=== PATIENT | female | born 1950 | race Caucasian/White ===

== ENCOUNTER 2017-01-14 22:14 | Inpatient (IN) | payer MEDICARE ==
--- NOTE | ~2017-01-14 | OP ---
Record Of Operation [facility] [address] [place]. [address] NAME: HERMES GARCIA : 52 STATUS : ADM IN [facility]#: [id number] AGE: 66 ADM/REG DATE : 01/15/17 MR#: [id number] REPORT SERV DATE: 01/16/17 DICTATED BY: ROSALIO REDD DATE: 01/15/17 REPORT STATUS : Draft TRANSCRIBED BY: MODL DATE: 01/15/17 DATE OF PROCEDURE: 01/15/2017 PREOPERATIVE DIAGNOSIS: Pathologic left proximal 1/3rd diaphyseal femur fracture, secondary to osteoporosis. POSTOPERATIVE DIAGNOSIS: Pathologic left proximal 1/3rd diaphyseal femur fracture, secondary to osteoporosis. PROCEDURE: Intramedullary nailing, left femur fracture. INTERMODAL CUSTOMER SERVICE: Manolo Milligan. ANESTHESIA: General endotracheal. ESTIMATED BLOOD LOSS: 150 mL. COMPLICATIONS: None. DRAINS: None. IMPLANTS: Carmen Gamma3 nail. INDICATIONS FOR SURGERY: Ms. Garcia is a 66-year-old female, who sustained the above- mentioned fracture in a fall. She had a known impending pathologic femur fracture, secondary to osteoporosis. It was recommended that she undergo the above-mentioned procedure. Risks of the procedure including infection, neurovascular damage, DVT, PE, blood loss, nonunion, malunion, loss of fixation, possible future need for removal of hardware, anesthetic complications and others were discussed prior to proceeding. She fully understood and has requested to proceed. DESCRIPTION OF PROCEDURE: The patient was brought to the operating room and after adequate induction of anesthesia was positioned on the [place] fracture table in the supine position. The nonoperative hip was placed in flexion and abduction to facilitate radiography. The operative leg was placed in gentle skin traction. The fracture was then reduced to a position of anatomic reduction. Appropriate reduction was confirmed using biplanar fluoroscopic guidance. The hip was then prepped and draped in the usual sterile fashion. A 3-4cm incision was made proximal to the tip of the greater trochanter using a #10 blade. The subcutaneous tissues were dissected sharply, electrocautery was used as needed to maintain hemostasis. The fascia buddy was divided in line with the incision. The guidewire for the Gamma III nail system was then placed in the tip of the greater trochanter, in line with the intramedullary canal of the femur. The appropriate guidewire placement was confirmed using biplanar fluoroscopy. The guidewire was then over reamed with a 15.5 mm starting reamer. The 15.5 mm starting reamer was used to create a starting hole for the nail. After creating the starting hole, a ball-tipped guidewire was placed to the level of the fracture, a femoral driving guide and manual force was used to provisionally reduce the Record Of Operation [id number] [place]. [address] NAME: HERMES GARCIA : 52 STATUS : ADM IN PAT#: [id number] AGE: 66 ADM/REG DATE : 01/15/17 MR#: [id number] REPORT SERV DATE: 01/16/17 DICTATED BY: ROSALIO REDD DATE: 01/15/17 REPORT STATUS : Draft TRANSCRIBED BY: PIRNCESS DATE: 01/15/17 fracture and passed the guidewire across the fracture site. The guidewire was placed to the level of the distal metaphysis of the femur, it was measured to be 38 cm in length, with 36 cm clarice was chosen. The femur was then sequentially reamed from 9 mm to 11.5 mm, 0.5 mm increments. A 36 cm x 10 mm Gamma nail was then impacted across the fracture site over the guidewire. The guidewire was removed. Once, the nail was impacted to the appropriate depth, the compression screw guides were placed through separate incision. The guidewire was placed in a near center-center position for the compression screw. It was then drilled, then a 75 mm compression screw was placed, then a proximal set screw was placed in a static fashion. A perfect kotzebue technique was then used to place the distal locking screw for rotational control in a dynamic fashion using a perfect kotzebue technique. Once this had been completed, final fluoroscopic images were obtained and saved in both planes. The wound was copiously irrigated with normal saline. The fascia was closed with interrupted #1 Vicryl suture in [id number] fashion. The subcutaneous tissues were approximated with interrupted 2-0 Vicryl suture, and the skin stapled. A sterile dressing was applied and the patient awakened and taken to the recovery room in stable condition. POSTOPERATIVE PLAN: She is to be mobilized weightbearing as tolerated. She will have Physical Therapy for assistance with ambulation and will be on Coumadin and mechanical DVT prophylaxis. FRANCINE/MODL Rosalio Redd M.D. / [id number] CC: Maria Guadalupe Hernandez M.D.
--- NOTE | ~2017-01-14 | HP ---
History And Physical [address] [place]. [address] NAME: HERMES GARCIA : 52 STATUS : ADM IN [facility]#: [id number] AGE: 66 ADM/REG DATE : 01/15/17 MR#: [id number] REPORT SERV DATE: 01/15/17 DICTATED BY: RAQUEL BERNSTEIN DATE: 01/15/17 REPORT STATUS : Draft TRANSCRIBED BY: MODJude DATE: 01/15/17 DATE OF ADMISSION: 01/15/2017 POINT OF ENTRY: [facility] Emergency Department. PRIMARY CARE PHYSICIAN: None at this time. PRIMARY ORTHOPEDIC SURGEON: Rosalio Redd M.D. CHIEF COMPLAINT: Left leg pain. HISTORY OF PRESENT ILLNESS: Ms. Garcia is a 66-year-old female with a history of osteoarthritis, fibromyalgia, as well as "metabolic bone disease" who presents to the emergency department today with acute onset of left leg pain. The patient states she was recently diagnosed with a presumed occult fracture of the left femur with plans for surgical correction tomorrow by Dr. Redd. Today, while placing weight on the left leg while stepping out of a bathtub she felt a pop and sudden sensation of pain in that left leg. She denies any recent trauma to the leg. Denies any falls. The patient states she has a history of metabolic bone disease. She states that she was recently diagnosed with this occult fracture in her left femur by Dr. Redd when she started to complain of discomfort and pain in that leg. X-rays reportedly negative, but it was detected by a bone scan. Initial evaluation in the emergency department notable for multiple films of the pelvis and left leg that shows a displaced fracture of the proximal segment of the femoral shaft. Labs and chest x-ray otherwise unremarkable. She was subsequently admitted to the Hospitalist Service for further evaluation and management. REVIEW OF SYSTEMS: Comprehensive review of systems otherwise negative unless listed in history of present illness. PREVIOUS MEDICAL HISTORY: 1. "Metabolic bone disease. 2. Osteoarthritis. 3. Fibromyalgia. 4. Reflex sympathetic dystrophy. SURGICAL HISTORY: 1. Bilateral total knee. 2. Cholecystectomy. 3. Cervical spine surgery. 4. ORIF of right femur. History And Physical [address] [place]. [address] NAME: HERMES GARCIA : 52 STATUS : ADM IN PAT#: [id number] AGE: 66 ADM/REG DATE : 01/15/17 MR#: [id number] REPORT SERV DATE: 01/15/17 DICTATED BY: RAQUEL BERNSTEIN DATE: 01/15/17 REPORT STATUS : Draft TRANSCRIBED BY: PRINCESS DATE: 01/15/17 ALLERGIES: NO KNOWN DRUG ALLERGIES. HOME MEDICATIONS: 1. Calcium with vitamin D 600 mg daily. 2. Cholecalciferol 10,000 units daily. 3. Melatonin 10 mg at bedtime. 4. Multivitamin one tab daily. 5. Tramadol 50 mg q.4 hours p.r.n. 6. Flexeril 1 tab q.4 hours p.r.n. 7. Celebrex 1 tab t.i.d. 8. Tjgs-icj-cjhahdm pain medication. SOCIAL HISTORY: Denies any tobacco, alcohol, or illicits. FAMILY MEDICAL HISTORY: Mother with coronary artery disease. Father with prostate cancer. Siblings with history of prostate cancer. LABS AND IMAGIN. White count is 12.2, hemoglobin 13.5, hematocrit 37.7, and platelet count is 231. INR 1.1. 2. Sodium is 142, potassium 3.5, chloride 105, carbon dioxide 29, BUN 14, creatinine 0.80, glucose is 154, calcium is 8.7, protein is 7.5, albumin is 3.9, bilirubin is 0.3, ALT is 23, AST 20, and alkaline phosphatase is 89. 3. Chest x-ray per my review shows no acute cardiopulmonary abnormality. 4. Plain films of the left hip and pelvis show a displaced fracture in the proximal segment of the left femoral shaft. PHYSICAL EXAMINATION: VITAL SIGNS: Temperature is afebrile, pulse initially is 113, and blood pressure 160/94. GENERAL: The patient is awake, alert, in no acute distress. Resting comfortably in bed. She is a well-developed, well-nourished, female. HEENT: Atraumatic and normocephalic. Moist mucous membranes. Pupils equal, round, and reactive to light and accommodation. Extraocular eye movements intact. No scleral icterus. NECK: No jugular venous distention. No carotid bruits. CARDIAC: Regular rate and rhythm. No murmurs or gallops. Normal S1, S2. LUNGS: Clear to auscultation bilaterally. No wheezes, rhonchi, or rales. ABDOMEN: Soft, nontender, nondistended. Good bowel sounds. No rebound, guarding, or rigidity. EXTREMITIES: Warm and perfused. The left lower extremity is foreshortened but is neurovascularly intact distally. SKIN: Warm and dry. PSYCH: Affect appropriate. NEURO: Alert and oriented x3. Cranial nerves 2 through 12 are grossly intact. Speech is normal. Gait not assessed. ASSESSMENT: Ms. Garcia is a 66-year-old female who presents with acute onset of left leg pain and found to have displaced fracture of the left femur. History And Physical [address] [address] NAME: HERMES GARCIA : 52 STATUS : ADM IN [facility]#: [id number] AGE: 66 ADM/REG DATE : 01/15/17 MR#: [id number] REPORT SERV DATE: 01/15/17 DICTATED BY: RAQUEL BERNSTEIN DATE: 01/15/17 REPORT STATUS : Draft TRANSCRIBED BY: PRINCESS DATE: 01/15/17 PROBLEM LIST: 1. Displaced fracture, left femur. 2. Metabolic bone disease. PLAN: 1. Displaced left femur fracture. We will admit patient to Hospitalist Service. We will consult Orthopedic Surgery, Dr. Redd, who had plans for surgery anyways tomorrow on this very same leg. Preoperative labs and chest x-ray have been done. We will check a urinalysis as well as an EKG. I will provide supportive care with antiemetics, pain control, as well as p.r.n. Valium or Flexeril for muscle spasms. Per discussion with Dr. Bullard, we will also place the patient in Adams's traction given displaced fracture. 2. Metabolic bone disease per Dr. Redd. 3. DVT prophylaxis. BERNA's and SCD's. CODE STATUS: The patient wished to be full code. MARTI/PRINCESS Raquel Bernstein MD / [id number] CC: Selvin Morfin [place], M.D.
--- NOTE | ~2017-01-14 | DS ---
Discharge Summary [facility] [address] [place]. [address] NAME: HERMES GARCIA : 52 STATUS : DIS IN PAT#: [id number] AGE: 66 ADM/REG DATE : 01/15/17 MR#: [id number] REPORT SERV DATE: 01/18/17 DICTATED BY: Kateryna TY DATE: 01/17/17 REPORT STATUS : Draft TRANSCRIBED BY: MODL DATE: 01/17/17 ADMISSION DATE: 01/15/2017 DISCHARGE DATE: 01/17/2017 The patient was admitted to the Hospitalist Service. PRISM INSPECTOR: Rosalio Redd M.D. DISCHARGE DIAGNOSES: 1. Left pathologic femur fracture secondary to osteoporosis status post left intramedullary nailing. 2. History of metabolic bone disease. 3. Fibromyalgia. 4. History of arthritis. PROCEDURES: On 01/15/2017, the patient underwent intramedullary nailing of left femur fracture. IMAGING AND DIAGNOSTICS: 1. On 01/14/2017, portable chest x-ray revealed stable mild cardiomegaly with mild pulmonary venous congestion. 2. On 01/14/2017, hip and pelvis x-ray showed a transverse fracture proximal left femur. LABORATORY STUDIES: 1. Discharge labs on 01/17/2017; basic metabolic panel revealed a sodium of 138, potassium 3.9, chloride 102, CO2 of 32, BUN 20, creatinine 0.82, GFR 75, glucose 119, calcium 8.7, and magnesium 2.4. 2. CBC on 01/17/2017 revealed a white count of 13.5, hemoglobin 11, hematocrit 31.7, platelets 219,000. 3. Pro time 19.3, INR 1.6. HISTORY OF PRESENT ILLNESS: For complete history, please refer to admission H and P by Dr. Ish Reyes. Briefly, Ms. Garcia is a very pleasant, 66-year-old female who presented to the emergency room with complaints of left leg pain. She states that she was scheduled to have surgery for an occult fracture of the left femur by Dr. Redd. However, when she stepped out of the bath tub earlier in the day prior to her admission, she felt a pop and sudden sensation of left leg pain. Therefore, she presented to the emergency room for evaluation. Hospitalist Service was asked to admit her. HOSPITAL COURSE: Ms. Garcia was admitted to the orthopedic unit. A consultation was placed to Dr. Rosalio Redd. She was kept n.p.o. and provided with IV fluids, p.r.n. antiemetics, and p.r.n. IV pain control. She was also placed in Adams's traction. She was seen later that day by Dr. Rosalio Redd who planned on taking the patient to the OR and proceed with the previously scheduled surgery. I initially saw Ms. Garcia post surgery. She was in no acute distress, sitting up in bed with a cervical soft collar intact stating that she had a history of a broken neck, and she used a soft collar for support. Her blood Discharge Summary [facility] [id number] [facility] [place]. [address] NAME: HERMES GARCIA : 52 STATUS : DIS IN [facility]#: [id number] AGE: 66 ADM/REG DATE : 01/15/17 MR#: [id number] REPORT SERV DATE: 01/18/17 DICTATED BY: Kateryna TY DATE: 01/17/17 REPORT STATUS : Draft TRANSCRIBED BY: PRINCESS DATE: 01/17/17 pressure was elevated at 147/80 and 172/87. Chest x-ray done in the emergency room was read as some mild venous congestion compared to the preop chest x-ray that she had done the week prior. She did have no symptoms of shortness of breath or chest pain. She did have a few fine bibasilar crackles posteriorly. I did give her one dose of IV Lasix and discontinued her IV fluids. She did have a Wilson catheter on this date. On 01/16/2017, she was sitting up in a chair. Upon my assessment, she had no complaints. She denied any chest pain, shortness of breath, or dysuria. She did dislike the hospital food served and was eating a subway sandwich without any symptoms. Her Wilson catheter was discontinued earlier that morning, and she had not voided yet. Her labs were stable, and her vital signs were stable. Blood pressure 95/57, heart rate in the low 90s, and her O2 saturation was 97% on room air, and she was afebrile. On the morning of 01/17/2017, I saw Ms. Garcia ambulating in the rodriguez using a rolling walker. She was in no distress whatsoever, doing well overall. Vital signs stable. She stated that she had some mild left-sided thigh discomfort, otherwise no new complaints. Her vital signs this morning, blood pressure 136/74, pulse 64, respirations 16 and unlabored, temp 97.5, and O2 saturation 94% on room air. Her lungs were clear to auscultation bilaterally. Normal respiratory effort. Heart sounds were normal without murmurs, rubs, or gallops. Regular rate and rhythm. Abdomen was soft, nontender. Active bowel sounds. Eating and drinking without difficulty. She denied any urinary symptoms whatsoever, was voiding without difficulty. She did have a mild leukocytosis this morning, however, this is likely secondary to the IV steroids that she received last dose yesterday. Therefore, it was felt that Ms. Garcia was stable to be discharged home after passing Physical Therapy. She and her were in agreement with this plan of care. Per Ortho, she was able to discharge home today. DISCHARGE INSTRUCTIONS: Include: 1. Diet as tolerated. 2. Activity as tolerated with outpatient physical therapy. DISCHARGE MEDICATIONS: Are as follows: 1. Caltrate 600 plus D one p.o. daily. 2. Vitamin D 68780 units p.o. daily. 3. Colace 100 mg p.o. b.i.d. 4. Melatonin 10 mg p.o. at bedtime. 5. Multivitamin p.o. daily. 6. Coumadin 4 mg p.o. daily. 7. Flexeril 10 mg p.o. four times a day p.r.n. 8. Tramadol 50 mg p.o. q.4 hours p.r.n. 9. Legatrin PM over the counter, one at bedtime p.r.n. 10.Oxycodone 5 mg 1-2 tabs q.4-6 hours p.r.n. pain prescription on chart. OTHER DISCHARGE INSTRUCTIONS: Include the patient will follow up with her primary care provider in 7-10 days. She will also follow up with Dr. Redd as previously scheduled. DICTATED BY: Nova Roman, [facility]- Discharge Summary [address] [address] NAME: HERMES GARCIA : 52 STATUS : DIS IN [facility]#: [id number] AGE: 66 ADM/REG DATE : 01/15/17 MR#: [id number] REPORT SERV DATE: 01/18/17 DICTATED BY: Kateryna TY DATE: 01/17/17 REPORT STATUS : Draft TRANSCRIBED BY: PRINCESS DATE: 01/17/17 DICTATED FOR: Selvin Galindo/PRINCESS RONA Marquez Kateryna Ty M.D. / [id number] CC: Selvin Morfin M.D.
--- NOTE | ~2017-01-14 | CN ---
Consultation Report [facility] [address] [place]. [address] NAME: HERMES GARCIA : 52 STATUS : ADM IN PAT#: [id number] AGE: 66 ADM/REG DATE : 01/15/17 MR#: [id number] REPORT SERV DATE: 01/16/17 DICTATED BY: ROSALIO REDD DATE: 01/15/17 REPORT STATUS : Draft TRANSCRIBED BY: MODL DATE: 01/15/17 DATE OF CONSULTATION: 01/15/2017 CHIEF COMPLAINT: Left thigh pain. HISTORY OF PRESENT ILLNESS: Ms Garcia is a 66-year-old female, who is noted to have impending pathologic left femur fracture. She had been at home protected weightbearing. She stood on her left leg and twisted resulting in a fall. She was unable to ambulate after the fall. She presented to [facility] Emergency Room, where x-rays showed a proximal 1/3 left diaphyseal femur fracture. I have now been asked to see her for evaluation and treatment. On questioning, she complains of only thigh and hip pain. She denies any mental status changes or loss of consciousness at the time of the fall. PHYSICAL EXAMINATION: GENERAL: She is awake, alert and oriented. NECK: Nontender. EXTREMITIES: She has no evidence of bony injury to either upper extremity or right lower extremity with regard to her left lower extremity. She has a slight angular deformity of her proximal femur. She is non-tolerant to any attempted passive or active hip or knee range of motion. There is no significant trochanteric tenderness. She is exquisitely tender at the level of the fracture as would be expected. She has normal sciatic nerve function and palpable pedal pulses. DIAGNOSTIC STUDIES: X-rays of her left femur show a proximal 1/3 diaphyseal left femur fracture. IMPRESSION: Pathologic left femur fracture secondary to osteoporosis. I have recommended Ms Garcia to undergo intramedullary nailing as was previously scheduled. I have reviewed the risks, benefits, and expected outcome of the surgery as was previously discussed. She has a good understanding and has requested to proceed with surgical scheduling. FRANCINE/PRINCESS Rosalio Redd M.D. / [id number] CC: Consultation Report [address] [place]. [address] NAME: HERMES GARCIA : 52 STATUS : ADM IN PAT#: [id number] AGE: 66 ADM/REG DATE : 01/15/17 MR#: [id number] REPORT SERV DATE: 01/16/17 DICTATED BY: ROSALIO REDD DATE: 01/15/17 REPORT STATUS : Draft TRANSCRIBED BY: MODL DATE: 01/15/17 Maria Guadalupe Hernandez M.D.
[~2017-01-14 22:14] MED LIST: ACET500CAP PO; AMB10 PO; AMB5 PO; C5; CALTRA600D PO; CALTRAT600 PO; CELEBREX2 PO; COUMADIN3 MG PO; DCN100 PO; ETODOLAC500 MG OR; FESO4 PO; FLEX PO; LEGATRIN PO; MELATONIN5 M1 PO; MULTIVITAMI1 PO; PCET PO; ULTRAM50 PO; VITAMIN D1000 UNI1 PO; VITD PO; VOLT75 PO
[2017-01-14 23:22] LABS: BASOPHILS 0.2 %; BASOPHILS ABSOLUTE 0.02 10/3/uL (0.0-0.16); EOSINOPHILS 0.2 %; EOSINOPHILS ABSOLUTE 0.03 10/3/uL (0.0-0.53); HEMATOCRIT 37.7 % (36.0-48.0); HEMOGLOBIN 13.5 g/dL (12.0-16.0); IMMATURE GRANULOCYTES 0.2 %; IMMATURE GRANULOCYTES ABSOLUTE 0.03 10/3/uL (0.0-0.11); LYMPHOCYTES 13.4 %; LYMPHOCYTES ABSOLUTE 1.64 10/3/uL (0.67-4.30); MEAN CORPUSCULAR HEMOGLOB 31.5 pg (26.0-34.0); MEAN PLATELET VOLUME 9.6 fL (9.2-13.0); MONOCYTES 7.7 %; MONOCYTES ABSOLUTE 0.94 10/3/uL (0.21-1.20); NEUTROPHILS 78.3 %; NEUTROPHILS ABSOLUTE 9.55 10/3/uL (2.02-8.40); PLATELET COUNT 231 10/3/uL (150-400); RBC DISTRIBUTION WIDTH 13.1 % (12.0-16.0); RED CELL COUNT 4.29 10/6/uL (4.0-5.6)
[2017-01-14 23:24] LABS: ER CBC TAT 0 Hrs 00 MinsNP; MANUAL DIFF NO %; MEAN CORPUS HGB CONC 35.8 g/dL (32.0-36.0); MEAN CORPUSCULAR VOLUME 87.9 fL (80-100); WHITE BLOOD CELLS 12.2 10/3/uL (4.5-10.5)
[2017-01-14 23:31] LABS: INTERNATIONAL NORMAL RATI 1.1 UNITS (-); PROTIME (NOT ORD) 14.2 SEC (12.0-14.5)
[2017-01-14 23:36] LABS: A/G RATIO 1.1 (0.7-1.9); ALBUMIN 3.9 G/DL (3.5-5.0); ALKALINE PHOSPHATASE 89 U/L (45-117); BUN (BLOOD UREA NITROGEN) 14 MG/DL (6-23); CALCIUM, SERUM 8.7 MG/DL (8.5-10.4); CHLORIDE, SERUM 105 MMOL/L (96-112); CO2 (CARBON DIOXIDE) 29 MMOL/L (24-34); GFR AFRICAN AMERICAN 90 ML/MIN (>=60); GFR NON AFRICAN AMERICAN 77 ML/MIN (>=60); POTASSIUM, SERUM 3.5 MMOL/L (3.5-5.3); SGOT(AST) 20 U/L (5-40); SGPT(ALT) 23 U/L (5-65); SODIUM, SERUM 142 MMOL/L (135-148); TOTAL BILIRUBIN 0.3 MG/DL (0-1.2); TOTAL PROTEIN 7.5 G/DL (6.0-8.5)
[2017-01-14 23:38] LABS: GLOBULIN 3.6 G/DL (2.5-4.1); GLUCOSE, SERUM 154 MG/DL (60-99)
[2017-01-14] MEDS ORDERED: FLEX PO (23:58)
[2017-01-15] MEDS ORDERED: ULTRAM50 PO
[2017-01-15] MEDS ORDERED: CELEBREX2 PO
[2017-01-15] MEDS ORDERED: MULTIVIT/MIN PO (00:01)
[2017-01-15] MEDS ORDERED: CALTRA600D PO (00:01)
[2017-01-15] MEDS ORDERED: MAXIMUM D3 PO (00:02)
[2017-01-15] MEDS ORDERED: [UNRECOGNIZED DRUG - OTHER] PO (00:02)
[2017-01-15] MEDS ORDERED: MELATONIN10 M2 PO (00:02)
[2017-01-16 05:51] LABS: BASOPHILS 0.1 %; BASOPHILS ABSOLUTE 0.01 10/3/uL (0.0-0.16); EOSINOPHILS 0 %; IMMATURE GRANULOCYTES 0.3 %; IMMATURE GRANULOCYTES ABSOLUTE 0.03 10/3/uL (0.0-0.11); LYMPHOCYTES 13.3 %; LYMPHOCYTES ABSOLUTE 1.51 10/3/uL (0.67-4.30); MEAN CORPUS HGB CONC 34.1 g/dL (32.0-36.0); MEAN CORPUSCULAR HEMOGLOB 30.5 pg (26.0-34.0); MEAN CORPUSCULAR VOLUME 89.4 fL (80-100); MEAN PLATELET VOLUME 9.8 fL (9.2-13.0); MONOCYTES 8.3 %; MONOCYTES ABSOLUTE 0.94 10/3/uL (0.21-1.20); NEUTROPHILS ABSOLUTE 8.88 10/3/uL (2.02-8.40); PLATELET COUNT 206 10/3/uL (150-400); RBC DISTRIBUTION WIDTH 13.5 % (12.0-16.0); RED CELL COUNT 3.48 10/6/uL (4.0-5.6); WHITE BLOOD CELLS 11.4 10/3/uL (4.5-10.5)
[2017-01-16 05:52] LABS: HEMATOCRIT 31.1 % (36.0-48.0); HEMOGLOBIN 10.6 g/dL (12.0-16.0); MANUAL DIFF NO %
[2017-01-16 05:56] LABS: INTERNATIONAL NORMAL RATI 1.3 UNITS (-); PROTIME (NOT ORD) 16.3 SEC (12.0-14.5)
[2017-01-16 06:10] LABS: BUN (BLOOD UREA NITROGEN) 16 MG/DL (6-23); CHLORIDE, SERUM 101 MMOL/L (96-112); CO2 (CARBON DIOXIDE) 29 MMOL/L (24-34); CREATININE 0.84 MG/DL (0.55-1.02); GFR AFRICAN AMERICAN 85 ML/MIN (>=60); GFR NON AFRICAN AMERICAN 73 ML/MIN (>=60); GLUCOSE, SERUM 140 MG/DL (60-99); POTASSIUM, SERUM 4.2 MMOL/L (3.5-5.3); SODIUM, SERUM 137 MMOL/L (135-148)
[2017-01-17 06:02] LABS: BASOPHILS 0.1 %; BASOPHILS ABSOLUTE 0.02 10/3/uL (0.0-0.16); EOSINOPHILS 0 %; HEMATOCRIT 31.7 % (36.0-48.0); IMMATURE GRANULOCYTES 0.4 %; IMMATURE GRANULOCYTES ABSOLUTE 0.05 10/3/uL (0.0-0.11); LYMPHOCYTES 17.1 %; MEAN CORPUS HGB CONC 34.7 g/dL (32.0-36.0); MEAN CORPUSCULAR HEMOGLOB 30.8 pg (26.0-34.0); MEAN CORPUSCULAR VOLUME 88.8 fL (80-100); MEAN PLATELET VOLUME 9.9 fL (9.2-13.0); MONOCYTES 7.3 %; MONOCYTES ABSOLUTE 0.98 10/3/uL (0.21-1.20); NEUTROPHILS 75.1 %; PLATELET COUNT 219 10/3/uL (150-400); RBC DISTRIBUTION WIDTH 13.3 % (12.0-16.0); RED CELL COUNT 3.57 10/6/uL (4.0-5.6); WHITE BLOOD CELLS 13.5 10/3/uL (4.5-10.5)
[2017-01-17 06:06] LABS: INTERNATIONAL NORMAL RATI 1.6 UNITS (-)
[2017-01-17 06:09] LABS: PROTIME (NOT ORD) 19.3 SEC (12.0-14.5)
[2017-01-17 06:11] LABS: MANUAL DIFF NO %
[2017-01-17 06:13] LABS: CALCIUM, SERUM 8.7 MG/DL (8.5-10.4); CHLORIDE, SERUM 102 MMOL/L (96-112); CO2 (CARBON DIOXIDE) 32 MMOL/L (24-34); CREATININE 0.82 MG/DL (0.55-1.02); GFR AFRICAN AMERICAN 87 ML/MIN (>=60); GFR NON AFRICAN AMERICAN 75 ML/MIN (>=60); GLUCOSE, SERUM 119 MG/DL (60-99); POTASSIUM, SERUM 3.9 MMOL/L (3.5-5.3); SODIUM, SERUM 138 MMOL/L (135-148)
[2017-01-17 06:15] LABS: BUN (BLOOD UREA NITROGEN) 20 MG/DL (6-23)
[2017-01-17] MEDS ORDERED: COUMADIN4 MG PO (13:58)
[2017-01-17] MEDS ORDERED: OXYCOD (13:59)
== END 2017-01-17 15:00 | disposition home or self-care (01) | DRG 481 ==
LOC: ER 22:14 → 2SO 01-15 00:56 → SDC/OF 01-15 12:13 → 3SO 01-15 12:56
PROVIDERS: Emergency Medicine; Nurse Practitioner; Specialist
PROC: 0QS904Z Reposition Left Femoral Shaft with Internal Fixation Device, Open Approach (ICD-10-PCS; principal; 2017-01-15 08:00)
DX: M80.052A Age-related osteoporosis with current pathological fracture, left femur, initial encounter for fracture (principal); G90.523 Complex regional pain syndrome I of lower limb, bilateral; W18.30XA Fall on same level, unspecified, initial encounter; M79.7 Fibromyalgia; Z96.653 Presence of artificial knee joint, bilateral; Z98.890 Other specified postprocedural states; Z82.49 Family history of ischemic heart disease and other diseases of the circulatory system; Z80.42 Family history of malignant neoplasm of prostate; W22.09XA Striking against other stationary object, initial encounter; Y92.002 Bathroom of unspecified non-institutional (private) residence as the place of occurrence of the external cause
CPT/HCPCS: 36415; 71010; 73502-LT; 73552-LT; 80048; 80053; 83735; 85025; 85610; 86850; 86900; 86901; 93005; 96374; 96375; 96376; 97110-GP; 97116-GP; 97161-GP; 97165-GO; 97530-GP; 97535-GO; 99285; A9270-GY; C1713; C1769; G8987-CJ-GO; G8988-CI-GO; J0690; J1170; J1940; J2250; J2405; J2710; J3010; J3360; J3370